=== PATIENT | female | born 1945 | race Caucasian/White ===

== ENCOUNTER 2016-08-15 20:19 | Observation (INO) | payer MEDICARE, OTHER ==
[~2016-08-15] VITALS: Ht 160 cm; Wt 54.4 kg
[~2016-08-15 20:19] MED LIST: ACET325S8 PO; AMIT8CAP6 PO; CYAN1000P SQ; CYCL1PAK PO; DONE10TA14 PO; ESTR1 PO; KETO2AER3 TOP; LIBRAX PO; PREV30CA36 PO; PROG100C PO; ULTR50TA PO; VENL75 PO; WAL-10TA2 PO; [UNRECOGNIZED DRUG - CODE] EX; [UNRECOGNIZED DRUG - CODE] PO; domperidone PO
[2016-08-15 20:28] VITALS: BP 143/60; PULSE 113; RESP 18; TEMP 99.1; O2SAT 97
[2016-08-15 20:45] LABS: AUTOMATED NEUTROPHIL # 4.4 TH/MM3 (1.8-7.7); BASOPHIL % 0.6 % (0.0-2.0); EOSINOPHIL # 0.3 TH/MM3 (0-0.4); EOSINOPHIL % 4.9 % (0.0-4.0); HEMATOCRIT 39.2 % (35.0-46.0); HEMO FLAGS DIFF FINAL; LYMPH % 17.5 % (9.0-44.0); LYMPHOCYTE # 1.1 TH/MM3 (1.0-4.8); MEAN CELL VOLUME 99.3 FL (80.0-100.0); MEAN CORPUSCULAR HEMOGLOBIN 32.5 PG (27.0-34.0); MEAN CORPUSCULAR HGB CONC 32.8 % (32.0-36.0); MONO % 8.5 % (0.0-8.0); NEUT % 68.5 % (16.0-70.0); PLATELET COUNT 397 TH/MM3 (150-450); RED BLOOD COUNT 3.95 MIL/MM3 (4.00-5.30); RED CELL DISTRIBUTION WIDTH 14.8 % (11.6-17.2); WHITE BLOOD COUNT 6.4 TH/MM3 (4.0-11.0)
[2016-08-15] MEDS ORDERED: ASPIRIN 325 MG TAB PO ONE (20:45)
[2016-08-15] MEDS ORDERED: SODIUM CHLORIDE 0.9% FLUSH 5 ML FLUSH IVF PRN (20:45)
[2016-08-15 20:48] VITALS: BP_SYST 126; BP_SYST 143; BP_DIAS 55; BP_DIAS 60
[2016-08-15] MEDS ORDERED: ESTR0.5T3 PO (20:48)
[2016-08-15] MEDS ORDERED: ASPI-110 PO (20:48)
[2016-08-15] MEDS ORDERED: LIBRAX PO (20:48)
[2016-08-15] MEDS ORDERED: DONE10TA7 PO (20:48)
[2016-08-15] MEDS ORDERED: PROG100C PO (20:48)
[2016-08-15] MEDS ORDERED: MOME0.1C23 TOPICAL (20:48)
[2016-08-15] MEDS ORDERED: POLYPOW5 (20:48)
[2016-08-15] MEDS ORDERED: CYCL1TAB29 PO (20:48)
[2016-08-15] MEDS ORDERED: CYAN1000P IM (20:48)
[2016-08-15] MEDS ORDERED: LANS30CA PO (20:48)
[2016-08-15] MEDS ORDERED: VENL75TA PO (20:48)
[2016-08-15] MEDS ORDERED: CLAR10CA3 PO (20:48)
[2016-08-15] MEDS ORDERED: KETO2CRE TOPICAL (20:48)
[2016-08-15] MEDS ORDERED: AMIT24CA5 PO (20:48)
[2016-08-15] MEDS ORDERED: TYLE325T PO (20:48)
[2016-08-15] MEDS ORDERED: TRAM50TA PO (20:48)
[2016-08-15 20:49] VITALS: RESP 18; O2SAT 97
[2016-08-15 21:01] LABS: CHLORIDE 105 MEQ/L (98-107); POTASSIUM 4.3 MEQ/L (3.5-5.1); SODIUM (NA) 143 MEQ/L (136-145)
[2016-08-15 21:03] LABS: ANION GAP 5 MEQ/L (5-15); BICARBONATE 32.7 MEQ/L (21.0-32.0); INTERNATIONAL NORMALIZED RATIO 0.9 RATIO; PROTHROMBIN TIME - PATIENT 9.8 SEC (9.8-11.6)
[2016-08-15 21:04] LABS: BLOOD UREA NITROGEN 9 MG/DL (7-18); MAGNESIUM 2.4 MG/DL (1.5-2.5)
--- NOTE | 2016-08-15 21:04 | RADHPO ---
EXAM DATE/TIME: 08/15/2016 20:40 [facility] COMPARISON: No previous studies available for comparison. INDICATIONS : Chest pain starting today MEDICAL HISTORY : None. SURGICAL HISTORY : None. ENCOUNTER: Initial ACUITY: 1 day PAIN SCORE: 7/10 LOCATION: Center of chest FINDINGS: A single view of the chest demonstrates the lungs to be symmetrically aerated without evidence of mas s, infiltrate or effusion. The cardiomediastinal contours are unremarkable. Osseous structures are intact. Extensive dextroscoliosis. CONCLUSION: No acute disease. Bhavesh Flores MD on August 15, 2016 at 21:02 Board Certified Radiologist. This report was verified electronically.
[2016-08-15 21:07] LABS: GLOMERULAR FILTRATION RATE 56 ML/MIN (>89)
[2016-08-15 21:11] LABS: CREATINE KINASE 98 U/L (26-192)
--- NOTE | 2016-08-15 21:15 | PD ---
HPI Chief Complaint: Chest Pain Time Seen by Provider: 20:29 Travel History International Travel<30 days: No Contact w/Intl Traveler<30days: No Traveled to known affect area: No History of Present Illness HPI 71yo F with fibromyalgia, gastroparesis presents to the ED with c/o midsternal chest pain since 6:30-7pm today. States she was having an argument with son and then prior to the chest pain. Pain is constant, nonradiating. Denies any sob, n/v, abdominal pain, weakness or numbness. States she had no prior similar chest pain and that she normally does not get chest pain after arguments. 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%) GERD: Yes Glaucoma: No Genitourinary: No Headaches: Yes Hepatitis: No Hiatal Hernia: No Hypertension: No Immune Disorder: No Implanted Vascular Access Dvce: No Kidney Stones: No Musculoskeletal: Yes (SCOLIOSIS ) Neurologic: Yes (FIBROMYALGIA) Psychiatric: No Reproductive: No Respiratory: No Immunizations Current: Yes Migraines: No Myocardial Infarction: No Radiation Therapy: No Renal Failure: No Seizures: No Sickle Cell Disease: No Sleep Apnea: No Thyroid Disease: No Ulcer: No Tetanus Vaccination: Unknown Influenza Vaccination: Yes PNEUMOCCOCAL Vaccine (Year): 2 ?: Not Menopausal: Yes Past Surgical History Abdominal Surgery: No AICD: No Appendectomy: No Arteriovenous Shunt: No Cardiac Surgery: No Cholecystectomy: Yes Ear Surgery: No Endocrine Surgery: No Eye Surgery: Yes (LASER) Genitourinary Surgery: No Gynecologic Surgery: No Hysterectomy: No Insulin Pump: No Joint Replacement: No Neurologic Surgery: No Oral Surgery: No Pacemaker: No Thoracic Surgery: No Other Surgery: Yes Social History Alcohol Use: No Tobacco Use: No Substance Use: No Allergies-Medications (Allergen,Severity, Reaction): Coded Allergies: Soma (Verified Adverse Reaction, Severe, CONFUSED, 1/4/17) Keflex (Verified Adverse Reaction, Mild, NAUSEA, 08/15/16) Reported Meds & Prescriptions Reported Meds & Active Scripts Active Reported Aspirin 81 (Aspirin) 81 Mg Tabdr 81 Mg PO DIRECTED Progesterone Micronized 100 Mg Cap 20 Mg PO DAILY Amitiza (Lubiprostone) 24 Mcg Cap 24 Mg PO BID Estrace (Estradiol) 0.5 Mg Tab 0.5 Mg PO DAILY Claritin (Loratadine) 10 Mg Cap 10 Mg PO DAILY Ketoconazole Topical 2% Cream 1 Applic TOPICAL BID Mometasone Topical (Mometasone Furoate) 0.1 % Cream 1 Applic TOPICAL DAILY Cyanocobalamin Inj (Cyanocobalamin) 1,000 Mcg/Ml Inj 1,000 Mcg IM EVERY OTHER DAY Donepezil 10 Mg Tab 10 Mg PO HS Librax (Chlordiazepoxide/Clidinium) 5-2.5 Mg Cap 2 Cap PO BID Effexor (Venlafaxine HCl) 75 Mg Tab 75 Mg PO DAILY Tramadol (Tramadol HCl) 50 Mg Tab 50 Mg PO Q8H PRN Flexeril (Cyclobenzaprine HCl) 10 Mg Tab 10 Mg PO BID Polyethylene Glycol 3350 (Polyethylene Glycol 3350 (Bulk) 1 Pow Pow PRN Lansoprazole 30 Mg Capdr 30 Mg PO BID Tylenol (Acetaminophen) 325 Mg Tab 325 Mg PO Q6H PRN [domperidone] 20 Mg PO TIDAC Review of Systems Except as stated in HPI: all other systems reviewed are Neg Physical Exam Narrative GENERAL: 71yo F in mild distress. SKIN: Warm and dry. HEAD: Atraumatic. Normocephalic. EYES: Pupils equal and round. No scleral icterus. No injection or drainage. ENT: No nasal bleeding or discharge. Mucous membranes pink and moist. NECK: Trachea midline. No JVD. CARDIOVASCULAR: Regular rate and rhythm. No murmur appreciated. RESPIRATORY: No accessory muscle use. Clear to auscultation. Breath sounds equal bilaterally. GASTROINTESTINAL: Abdomen soft, non-tender, nondistended. No rebound tenderness or guarding. MUSCULOSKELETAL: No obvious deformities. No clubbing. No cyanosis. No edema. NEUROLOGICAL: Awake and alert. No obvious cranial nerve deficits. Motor grossly within normal limits. Normal speech. PSYCHIATRIC: Starts crying when telling me history. Visibly upset with what happened at home. Data Data Last Documented VS Vital Signs Date Time Temp Pulse Resp B/P Pulse Ox O2 Delivery O2 Flow Rate FiO2 08/15/16 20:51 95 18 97 Room Air 08/15/16 20:48 143/60 126/55 08/15/16 20:28 99.1 Orders Basic Metabolic Panel (Bmp) (08/15/16 20:36) Ckmb (Isoenzyme) Profile (08/15/16 20:36) Complete Blood Count With Diff (08/15/16 20:36) Magnesium (Mg) (08/15/16 20:36) Prothrombin Time / Inr (Pt) (08/15/16 20:36) Act Partial Throm Time (Ptt) (08/15/16 20:36) Troponin I (08/15/16 20:36) Chest, Single Ap (08/15/16 20:36) Ecg Monitoring (08/15/16 20:36) Bilateral Bp Monitoring (08/15/16 20:36) Iv Access Insert/Monitor (08/15/16 20:36) Oximetry (08/15/16 20:36) Oxygen Administration (08/15/16 20:36) Sodium Chloride 0.9% Flush (Ns Flush) (08/15/16 20:45) Aspirin (Aspirin) (08/15/16 20:45) Electrocardiogram (08/15/16 20:24) Labs Laboratory Tests Test 08/15/16 20:25 White Blood Count 6.4 TH/MM3 Red Blood Count 3.95 MIL/MM3 Hemoglobin 12.9 GM/DL Hematocrit 39.2 % Mean Corpuscular Volume 99.3 FL Mean Corpuscular Hemoglobin 32.5 PG Mean Corpuscular Hemoglobin 32.8 % Concent Red Cell Distribution Width 14.8 % Platelet Count 397 TH/MM3 Mean Platelet Volume 7.8 FL Neutrophils (%) (Auto) 68.5 % Lymphocytes (%) (Auto) 17.5 % Monocytes (%) (Auto) 8.5 % Eosinophils (%) (Auto) 4.9 % Basophils (%) (Auto) 0.6 % Neutrophils # (Auto) 4.4 TH/MM3 Lymphocytes # (Auto) 1.1 TH/MM3 Monocytes # (Auto) 0.5 TH/MM3 Eosinophils # (Auto) 0.3 TH/MM3 Basophils # (Auto) 0.0 TH/MM3 CBC Comment DIFF FINAL Differential Comment Prothrombin Time 9.8 SEC Prothromb Time International 0.9 RATIO Ratio Activated Partial 24.0 SEC Thromboplast Time Sodium Level 143 MEQ/L Potassium Level 4.3 MEQ/L Chloride Level 105 MEQ/L Carbon Dioxide Level 32.7 MEQ/L Anion Gap 5 MEQ/L Blood Urea Nitrogen 9 MG/DL Creatinine 0.99 MG/DL Estimat Glomerular Filtration 56 ML/MIN Rate Random Glucose 96 MG/DL Calcium Level 8.8 MG/DL Magnesium Level 2.4 MG/DL Total Creatine Kinase 98 U/L Troponin I LESS THAN 0.02 NG/ML MDM Medical Decision Making Medical Screen Exam Complete: Yes Emergency Medical Condition: Yes Interpretation(s) EKG: Sinus tachycardia at 103bpm. Normal axis. No ST segment elevation or depression. Differential Diagnosis ACS vs. anxiety vs. stress related cardiomyopathy Narrative Course 71yo F with midsternal chest pain after argument with family today. Pt was initially mildly tachycardic and upset but heart rate decreased once she calmed down and feels better now. Pt denies any sob. Labs reviewed, no leukocytosis. Troponin negative. CXR showed no acute disease. Pt was given aspirin 325mg PO in ED. Pt reevaluated and currently does not have any more chest pain. Will admit pt for chest pain center and serial EKG and cardiac enzyme. Discussed with Dr. Matson and accepted. Diagnosis Primary Impression: Chest pain Qualified Code: R07.9 - Chest pain, unspecified type Admitting Information Admitting Physician Requests: Blanca Riley DO Aug 15, 2016 21:15
[2016-08-15] MEDS ORDERED: SENNOSIDES 8.6 MG TAB PO PRN (21:45)
[2016-08-15] MEDS ORDERED: ENOXAPARIN SODIUM 40 MG/0.4 ML SYRINGE SQ SCH (21:45)
[2016-08-15] MEDS ORDERED: PROCHLORPERAZINE 25 MG SUPP PR PRN (21:45)
[2016-08-15] MEDS ORDERED: MAGNESIUM HYDROXIDE SUSP 30 ML CUP PO PRN (21:45)
[2016-08-15] MEDS ORDERED: TEMAZEPAM 15 MG CAP PO PRN (21:45)
[2016-08-15] MEDS ORDERED: BISACODYL 10 MG SUPP PR PRN (21:45)
[2016-08-15] MEDS ORDERED: MORPHINE SULFATE 4 MG/ML INJ IV PUSH PRN (21:45)
[2016-08-15] MEDS ORDERED: ONDANSETRON HCL 4 MG/2 ML VIAL IVP PRN (21:45)
[2016-08-15] MEDS ORDERED: SODIUM CHLORIDE 0.9% FLUSH 5 ML FLUSH FLUSH PRN (21:45)
[2016-08-15] MEDS ORDERED: ACETAMINOPHEN 325 MG TAB PO PRN (21:45)
[2016-08-15 23:00] VITALS: O2SAT 99
[2016-08-15] MEDS ORDERED: LORazepam 0.5 MG TAB PO PRN (23:00)
[2016-08-15] MEDS: traMADol HCL 50 MG TAB PO PRN (23:10)
[2016-08-16] VITALS (7 sets, daily range): BP systolic 127–156; BP diastolic 54–74; PULSE 78–101; RESP 18–20; TEMP 97.5–97.7; O2SAT 98–100
--- NOTE | 2016-08-16 05:24 | EKG ---
Date Performed: 08/15/2016 Time Performed: 20:24:32 PTAGE: 71 years EKG: Sinus tachycardia. Normal ECG except for rate NO SIGNIFICANT CHANGE FROM PRIOR ELECTROCARDI OGRAM. PREVIOUS TRACING : 10/07/2008 10.10 DOCTOR: jB Fletcher Interpretating Date/Time 08/16/2016 05:23:57
[2016-08-16 06:26] LABS: AUTOMATED NEUTROPHIL # 3.4 TH/MM3 (1.8-7.7); BASOPHIL % 0.8 % (0.0-2.0); EOSINOPHIL # 0.5 TH/MM3 (0-0.4); EOSINOPHIL % 7.9 % (0.0-4.0); HEMATOCRIT 34.1 % (35.0-46.0); HEMO FLAGS DIFF FINAL; LYMPH % 25.2 % (9.0-44.0); LYMPHOCYTE # 1.5 TH/MM3 (1.0-4.8); MEAN CELL VOLUME 97.7 FL (80.0-100.0); MEAN CORPUSCULAR HEMOGLOBIN 32.1 PG (27.0-34.0); MEAN CORPUSCULAR HGB CONC 32.8 % (32.0-36.0); NEUT % 57.1 % (16.0-70.0); PLATELET COUNT 346 TH/MM3 (150-450); RED BLOOD COUNT 3.49 MIL/MM3 (4.00-5.30); RED CELL DISTRIBUTION WIDTH 13.9 % (11.6-17.2); WHITE BLOOD COUNT 5.9 TH/MM3 (4.0-11.0)
[2016-08-16 06:35] LABS: POTASSIUM 3.7 MEQ/L (3.5-5.1)
[2016-08-16 06:38] LABS: BICARBONATE 31.6 MEQ/L (21.0-32.0)
--- NOTE | 2016-08-16 07:57 | EKG ---
Date Performed: 08/16/2016 Time Performed: 02:13:14 PTAGE: 71 years EKG: Sinus rhythm . Normal ECG NO SIGNIFICANT CHANGE FROM PRIOR ELECTROCARDIOGRAM. PREVIOUS TRACING : 08/15/2016 23.34 DOCTOR: Bj Fletcher Interpretating Date/Time 08/16/2016 07:56:38
--- NOTE | 2016-08-16 07:58 | EKG ---
Date Performed: 08/15/2016 Time Performed: 23:34:04 PTAGE: 71 years EKG: Sinus rhythm . Normal ECG NO SIGNIFICANT CHANGE FROM PRIOR ELECTROCARDIOGRAM. PREVIOUS TRACING : 08/15/2016 20.24 DOCTOR: Bj Fletcher Interpretating Date/Time 08/16/2016 07:57:41
[2016-08-16] MEDS: traMADol HCL 50 MG TAB PO PRN (08:04)
--- NOTE | 2016-08-16 08:54 | HHI.HP ---
[facility] Anita Lopez Admission Diagnosis Chest pain Diagnoses: (1) Chest pain Diagnosis: Principal Chief Complaint: Chest pain Travel History International Travel<30 Days: No Contact w/Intl Traveler <30 Da: No Traveled to Known Affected Are: No History of Present Illness 71 year-old male with known history of fibromyalgia, chronic arthritis , gastroparesis, small bowel motility problems, anxiety who presented to hospital because of chest discomfort. Patient states that she's been under a lot of stress lately over the last month. Her symptoms were precipitated by a discussion with her sign yesterday, she states that she was told that she cannot pick her grandson up for a visit. Shortly after that at approximately 4 PM yesterday afternoon she developed a tightness sensation middle part of her chest radiating to her bilateral arms. This lasted for approximately 3 hours prior to coming to the emergency department. Patient was given aspirin in which she was in the hospital her pain slowly dissipated. She is asymptomatic at this time. She denied any nausea, vomiting, diaphoresis, shortness of breath , dyspnea. The patient with minimal risk factors to include age, female, family history. Because of the risk factors is recommended by the ER physician that patient be observed and chest pain center for further evaluation. Review of Systems Constitutional: DENIES: Diaphoretic episodes, Fatigue, Fever, Weight gain, Weight loss, Chills, Dizziness, Change in appetite, Night Sweats Eyes: DENIES: Blurred vision, Diplopia, Eye inflammation, Eye pain, Vision loss , Double Vision Ears, nose, mouth, throat: DENIES: Vertigo, Nasal discharge, Throat pain, Ear Pain, Running Nose, Sinus Pain Respiratory: DENIES: Apneas, Cough, Snoring, Wheezing, Hemoptysis, Sputum production, Shortness of breath Cardiovascular: COMPLAINS OF: Chest pain, DENIES: Palpitations, Syncope, Dyspnea on Exertion, Lower Extremity Edema, Orthopnea Gastrointestinal: DENIES: Abdominal pain, Black stools, Bloody stools, Constipation, Diarrhea, Nausea, Vomiting, Difficulty Swallowing, Anorexia Neurologic: DENIES: Abnormal gait, Headache, Localized weakness, Paresthesias, Seizures, Speech Problems, Tremor, Poor Balance Psychiatric: COMPLAINS OF: Anxiety, DENIES: Confusion, Mood changes, Depression Past Family Social History Past Medical History Fibromyalgia Gastroparesis Chronic fatigue syndrome Arthritis Anxiety Past Surgical History Glaucoma surgery Cholecystectomy Reported Medications Reported Meds & Active Scripts Active Reported Aspirin 81 (Aspirin) 81 Mg Tabdr 81 Mg PO DIRECTED Progesterone Micronized 100 Mg Cap 20 Mg PO DAILY Amitiza (Lubiprostone) 24 Mcg Cap 24 Mg PO BID Estrace (Estradiol) 0.5 Mg Tab 0.5 Mg PO DAILY Claritin (Loratadine) 10 Mg Cap 10 Mg PO DAILY Ketoconazole Topical 2% Cream 1 Applic TOPICAL BID Mometasone Topical (Mometasone Furoate) 0.1 % Cream 1 Applic TOPICAL DAILY Cyanocobalamin Inj (Cyanocobalamin) 1,000 Mcg/Ml Inj 1,000 Mcg IM EVERY OTHER DAY Donepezil 10 Mg Tab 10 Mg PO HS Librax (Chlordiazepoxide/Clidinium) 5-2.5 Mg Cap 2 Cap PO BID Effexor (Venlafaxine HCl) 75 Mg Tab 75 Mg PO DAILY Tramadol (Tramadol HCl) 50 Mg Tab 50 Mg PO Q8H PRN Flexeril (Cyclobenzaprine HCl) 10 Mg Tab 10 Mg PO BID Polyethylene Glycol 3350 (Polyethylene Glycol 3350 (Bulk) 1 Pow Pow PRN Lansoprazole 30 Mg Capdr 30 Mg PO BID Tylenol (Acetaminophen) 325 Mg Tab 325 Mg PO Q6H PRN [domperidone] 20 Mg PO TIDAC Allergies: Coded Allergies: Soma (Verified Adverse Reaction, Severe, CONFUSED, 08/15/16) Keflex (Verified Adverse Reaction, Mild, NAUSEA, 08/15/16) Family History Reviewed is significant for mother having first heart attack at age 63 status post stenting Social History Patient denies any tobacco, alcohol or illicit drugs Physical Exam Vital Signs Vital Signs Date Time Temp Pulse Resp B/P Pulse Ox O2 Delivery O2 Flow Rate FiO2 08/16/16 05:51 97.5 78 20 134/54 100 08/16/16 05:04 86 08/16/16 04:52 78 18 98 08/16/16 04:04 79 18 131/60 98 Room Air 08/16/16 02:07 82 18 127/57 99 Room Air 08/16/16 00:37 88 18 142/55 100 Room Air 08/16/16 00:35 18 08/15/16 23:00 99 21 08/15/16 20:51 95 18 97 Room Air 08/15/16 20:49 18 97 Room Air 08/15/16 20:49 97 Room Air 08/15/16 20:48 143/60 126/55 08/15/16 20:28 99.1 113 18 143/60 97 Physical Exam GENERAL: Well-developed, well-nourished, in no acute distress. alert and orientated HEENT: Head is normocephalic without any lesions or masses noted. Facial features are symmetric. Eyes: Pupils equal round reactive to light. Extraocular muscles are intact. Conjunctivae were clear. Oropharyngeal: Pharynx without any erythema edema. Tongue is midline without deviation. Buccal mucosa is moist without any masses or lesions NECK: Supple without any masses. Trachea midline no deviation. No JVD, no bruits are appreciated CARDIAC: Regular rhythm, regular rate. S1/S2 are heard. 2/6 ejection murmur noted in the aortic region. No gallops or rubs. LUNGS: Clear to auscultation bilaterally. No wheeze, rhonchi or rales. No use of accessory muscles on inspiration or expiration. ABDOMEN: Soft, nontender. Nondistended. Bowel sounds heard in all 4 quadrants. No organomegaly or masses. Negative rebound, negative guarding EXTREMITIES: No edema, pulses are equal bilaterally. No cyanosis or clubbing NEUROLOGY: Mood patient is very anxious and affect appear appropriate. Cranial nerves II through XII grossly intact. Muscle strength 5/5 in upper and lower extremities bilaterally. Deep tendon reflexes are 2+ in upper and lower extremities bilaterally. Laboratory Laboratory Tests Test 08/15/16 08/15/16 08/16/16 08/16/16 20:25 23:15 00:20 06:20 White Blood Count 6.4 5.9 Red Blood Count 3.95 3.49 Hemoglobin 12.9 11.2 Hematocrit 39.2 34.1 Mean Corpuscular Volume 99.3 97.7 Mean Corpuscular Hemoglobin 32.5 32.1 Mean Corpuscular Hemoglobin 32.8 32.8 Concent Red Cell Distribution Width 14.8 13.9 Platelet Count 397 346 Mean Platelet Volume 7.8 7.4 Neutrophils (%) (Auto) 68.5 57.1 Lymphocytes (%) (Auto) 17.5 25.2 Monocytes (%) (Auto) 8.5 9.0 Eosinophils (%) (Auto) 4.9 7.9 Basophils (%) (Auto) 0.6 0.8 Neutrophils # (Auto) 4.4 3.4 Lymphocytes # (Auto) 1.1 1.5 Monocytes # (Auto) 0.5 0.5 Eosinophils # (Auto) 0.3 0.5 Basophils # (Auto) 0.0 0.0 CBC Comment DIFF FINAL DIFF FINAL Differential Comment Prothrombin Time 9.8 Prothromb Time International 0.9 Ratio Activated Partial 24.0 Thromboplast Time Sodium Level 143 144 Potassium Level 4.3 3.7 Chloride Level 105 106 Carbon Dioxide Level 32.7 31.6 Anion Gap 5 6 Blood Urea Nitrogen 9 7 Creatinine 0.99 0.63 Estimat Glomerular Filtration 56 94 Rate Random Glucose 96 83 Calcium Level 8.8 8.7 Magnesium Level 2.4 Total Creatine Kinase 98 Troponin I LESS THAN 0.02 LESS THAN 0.02 LESS THAN 0.02 Result Diagram: 08/16/16 0620 08/16/16 0620 Assessment and Plan Assessment and Plan Chest pain, atypical Likely secondary to anxiety Serial cardiac enzymes were performed and reviewed which were negative Serial EKGs were performed and reviewed which show sinus rhythm without any changes Nuclear stress test was performed which did not indicate any ischemia, low risk factor, secondary to the patient is unable to perform treadmill stress test because of fibromyalgia, aortic murmur Continue aspirin Fibromyalgia, chronic arthritis Continue home medications Anxiety Continue home medications DVT prevention Lovenox Written by Jaren Traylor PA-C, acting as scribe for Dr. Mora on 08/16/16 at 1550. The documentation accurately reflects the work and decisions performed face-to- face by Dr. Mora on 08/16/16 at 1550. Discharge disposition Discharge home in stable condition Activity: Ad woo. Diet: Regular diet Medications per medication reconciliation Follow-up primary medical doctor in one week Problem Qualifiers (1) Chest pain: Qualified Code: R07.9 - Chest pain, unspecified type Jaren Traylor Aug 16, 2016 08:54
[2016-08-16] MEDS ORDERED: LORATADINE 10 MG TAB PO SCH (09:00)
[2016-08-16] MEDS ORDERED: CYCLOBENZAPRINE HCL 10 MG TAB PO SCH (09:00)
[2016-08-16] MEDS ORDERED: ESTRADIOL 1 MG TAB PO SCH (09:00)
[2016-08-16] MEDS ORDERED: SODIUM CHLORIDE 0.9% FLUSH 5 ML FLUSH FLUSH SCH (09:00)
[2016-08-16] MEDS ORDERED: KETOCONAZOLE 2% CREAM 15 GM TOPICAL SCH (09:00)
[2016-08-16] MEDS ORDERED: AMITIZA 24 MCG PO SCH (09:00)
[2016-08-16] MEDS ORDERED: PROGESTERONE MICRONIZED PO SCH (09:00)
[2016-08-16] MEDS ORDERED: chlordiazePOXIDE/CLIDINIUM 5 MG/2.5 MG CAP PO SCH (09:00)
[2016-08-16] MEDS ORDERED: VENLAFAXINE HCL XR 75 MG CAP PO SCH (09:00)
[2016-08-16] MEDS ORDERED: BETAMETHASONE DIPROPIONATE 0.05% CREAM 15 GM TOPICAL SCH (09:00)
[2016-08-16] MEDS ORDERED: ASPIRIN EC 81 MG TABEC PO SCH (09:00)
[2016-08-16] MEDS ORDERED: PANTOPRAZOLE SOD 40 MG DELAYED RELEASE TAB PO SCH (09:00)
[2016-08-16] MEDS ORDERED: REGADENOSON INJ 0.4 MG/5 ML SYR IV ONE (09:53)
--- NOTE | 2016-08-16 11:36 | RADHPO ---
EXAM DATE/TIME: 08/16/2016 10:18 [facility] COMPARISON: No previous studies available for comparison. INDICATIONS : Midsternal chest pain for 2 days. Angina. DOSE: 25.5 mCi Tc99m Myoview at stress. 8.7 mCi Tc99m Myoview at rest. 0.4 mg Lexiscan STRESS SYMPTOMS: Chest pressure. EJECTION FRACTION: > 70% MEDICAL HISTORY : Gastroesophageal reflux disease. Hypercholesterolemia. Gastroparesis. Fibromyalgia. SURGICAL HISTORY : Cholecystectomy. ENCOUNTER: Initial ACUITY: 2 days PAIN SCALE: 7/10 LOCATION: Midsternal chest TECHNIQUE: The patient underwent pharmacologic stress with infusion of prescribed dose. Continuous ECG tracing was monitored during stress. Gated SPECT imaging was performed after stress and conventional SPECT i maging was performed at rest. The examination was performed on a SPECT/CT scanner, both attenuation and non-corrected datasets were reviewed. FINDINGS: DISTRIBUTION: The maximum perfused segment at stress is in the anteroseptal wall. PERFUSION STUDY: The pattern of perfusion at stress is within normal limits. GATED STUDY: There is intact wall motion and thickening without hypokinetic or dyskinetic segments. CONCLUSION: 1. No reversibility to suggest ischemia. 2. Normal wall motion with ejection fraction of greater than 70%. RISK CATEGORY: Low (<1% Annual Mortality Rate) Rayo Skinner MD on August 16, 2016 at 11:32 Board Certified Radiologist. This report was verified electronically.
--- NOTE | 2016-08-16 15:20 | HHI.DCPOC ---
Discharge Care Plan Diagnosis: (1) Chest pain Goals to Promote Your Health * To prevent worsening of your condition and complications * To maintain your health at the optimal level Directions to Meet Your Goals Take your medications as prescribed Follow your dietary instruction Follow activity as directed Keep your appointments as scheduled Take your immunizations and boosters as scheduled If your symptoms worsen call your PCP, if no PCP go to Urgent Care Center or Emergency Room Smoking is Dangerous to Your Health. Avoid second hand smoke Call the 24-hour hour crisis hotline for domestic abuse at Jaren Traylor Aug 16, 2016 15:20
[2016-08-16] MEDS ORDERED: DONEPEZIL HCL 5 MG TAB PO SCH (21:00)
--- NOTE | 2016-08-17 14:37 | TR ---
Date Performed: 08/16/2016 Time Performed: 10:29:18 DOCTOR: Chelle Mario DRUG LIST: CLINICAL HISTORY: REASON FOR TEST: Chest pain. REASON FOR ENDING: OBSERVATION: CONCLUSION: Lexiscan stress test was performed under standard four minute protocol. Radion[place] e was injected one minute prior to ending the test. No electrocardiographic abormalities were present to suggest ischemia. Nuclear imaging and interpretation are pending. COMMENTS:
== END 2016-08-16 15:40 | disposition home or self-care (01) ==
LOC: PHED 20:19 → PHEDA 21:42 → PHEDH 08-16 01:42 → PH3A 08-16 04:48
PROVIDERS: ADMIT Family Medicine; ATTEND Family Medicine
DX: R07.9 Chest pain, unspecified (principal); R01.1 Cardiac murmur, unspecified; M79.7 Fibromyalgia; K31.84 Gastroparesis; R53.82 Chronic fatigue, unspecified; K21.9 Gastro-esophageal reflux disease without esophagitis; K58.9 Irritable bowel syndrome, unspecified; F41.9 Anxiety disorder, unspecified; E78.00 Pure hypercholesterolemia, unspecified; H40.9 Unspecified glaucoma; M19.90 Unspecified osteoarthritis, unspecified site; M41.9 Scoliosis, unspecified
CPT/HCPCS: 71010; 78452; 80048; 82550; 82948; 83735; 84484; 85025; 85610; 85730; 93005; 93017; 97162; 99285; A9502; G0378; G8987; G8988; J1650; J2785

== ENCOUNTER 2017-07-12 20:18 | Emergency (ER) | payer MEDICARE, OTHER ==
[~2017-07-12] VITALS: Ht 160 cm; Wt 61.1 kg
[~2017-07-12 20:18] MED LIST changes: -ACET325S8 PO; +AMIT24CA9 PO; -AMIT8CAP6 PO; +ASPI1TAB57 PO; +CLAR10CA3 PO; +CYAN1000P IM; -CYAN1000P SQ; +CYCL10TA PO; -CYCL1PAK PO; -DONE10TA14 PO; +DONE10TA7 PO; +ESTR0.5T3 PO; -ESTR1 PO; -KETO2AER3 TOP; +KETO2CRE TOPICAL; +LANS30CA PO; +MOME0.1C23 TOPICAL; +POLYPOW5; -PREV30CA36 PO; +TRAM50TA PO; +TYLE325T PO; -ULTR50TA PO; -VENL75 PO; +VENL75TA PO; -WAL-10TA2 PO; -[UNRECOGNIZED DRUG - CODE] EX; -[UNRECOGNIZED DRUG - CODE] PO
[2017-07-12 20:23] VITALS: BP 144/60; PULSE 80; RESP 18; TEMP 98.1; O2SAT 95
[2017-07-12 20:35] VITALS: BP 121/58; PULSE 89; RESP 16; TEMP 98.2; O2SAT 98
--- NOTE | 2017-07-12 22:01 | PD ---
HPI Chief Complaint: Skin Problem Time Seen by Provider: 21:33 Travel History International Travel<30 days: No Contact w/Intl Traveler<30days: No Traveled to known affect area: No History of Present Illness HPI Patient is a 72-year-old female with a history of ulcerative arthritis presents emergency department for evaluation of a bump on her left thumb interphalangeal joint which been present for the past few weeks, she states tender to palpation. Hurts her when she moves her thumb. She relates a history of falling a few weeks ago and having an abrasion on the carpet on that same aspect of her thumb. She denies any fevers denies any wound that needed repair , denies any laceration denied any other injury pattern. States symptoms are mild. No radiation, worsens when she moves her thumb. PFSH Past Medical History Arthritis: Yes (NECK BACK KNEES BONE SPURS) Asthma: No Autoimmune Disease: No Blood Disorders: No Anxiety: Yes Depression: Yes Heart Rhythm Problems: No Cancer: No Cardiovascular Problems: No High Cholesterol: Yes Chemotherapy: No Chest Pain: No Congestive Heart Failure: No COPD: No Cerebrovascular Accident: No Diabetes: No Diminished Hearing: No Endocrine: No Fibromyalgia: Yes (WITH CHRONIC FATIGUE SYNDROME) Gastrointestinal Disorders: Yes (IBS GASTROPOROSIS ACID REFLUX, SMALL BOWEL MOTILITY 30%) GERD: Yes Glaucoma: No Genitourinary: No Headaches: Yes Hepatitis: No Hiatal Hernia: No Hypertension: No Immune Disorder: No Implanted Vascular Access Dvce: No Kidney Stones: No Musculoskeletal: Yes (SCOLIOSIS ) Neurologic: Yes (FIBROMYALGIA) Psychiatric: Yes Reproductive: No Respiratory: No Immunizations Current: Yes Migraines: No Myocardial Infarction: No Radiation Therapy: No Renal Failure: No Seizures: No Sickle Cell Disease: No Sleep Apnea: No Thyroid Disease: No Ulcer: No Tetanus Vaccination: > 5 Years Influenza Vaccination: Yes PNEUMOCCOCAL Vaccine (Year): 2 ?: Not Menopausal: Yes Past Surgical History Abdominal Surgery: No AICD: No Appendectomy: No Arteriovenous Shunt: No Cardiac Surgery: No Cholecystectomy: Yes Ear Surgery: No Endocrine Surgery: No Eye Surgery: Yes (LASER) Genitourinary Surgery: No Gynecologic Surgery: No Hysterectomy: No Insulin Pump: No Joint Replacement: No Neurologic Surgery: No Oral Surgery: No Pacemaker: No Thoracic Surgery: No Other Surgery: Yes Social History Alcohol Use: No Tobacco Use: No Substance Use: No Allergies-Medications (Allergen,Severity, Reaction): Coded Allergies: carisoprodol (Unverified Adverse Reaction, Severe, CONFUSED, 07/12/17) cephalexin (Unverified Adverse Reaction, Mild, NAUSEA, 07/12/17) Reported Meds & Prescriptions Reported Meds & Active Scripts Active Reported Aspirin 81 (Aspirin) 81 Mg Tabdr 81 Mg PO DIRECTED Progesterone Micronized 100 Mg Cap 20 Mg PO DAILY Amitiza (Lubiprostone) 24 Mcg Cap 24 Mg PO BID Estrace (Estradiol) 0.5 Mg Tab 0.5 Mg PO DAILY Claritin (Loratadine) 10 Mg Cap 10 Mg PO DAILY Ketoconazole Topical 2% Cream 1 Applic TOPICAL BID Mometasone Topical (Mometasone Furoate) 0.1 % Cream 1 Applic TOPICAL DAILY Cyanocobalamin Inj (Cyanocobalamin) 1,000 Mcg/Ml Inj 1,000 Mcg IM EVERY OTHER DAY Donepezil 10 Mg Tab 10 Mg PO HS Librax (Chlordiazepoxide/Clidinium) 5-2.5 Mg Cap 2 Cap PO BID Effexor (Venlafaxine HCl) 75 Mg Tab 75 Mg PO DAILY Tramadol (Tramadol HCl) 50 Mg Tab 50 Mg PO Q8H PRN Flexeril (Cyclobenzaprine HCl) 10 Mg Tab 10 Mg PO BID Polyethylene Glycol 3350 (Polyethylene Glycol 3350 (Bulk) 1 Pow Pow PRN Lansoprazole 30 Mg Capdr 30 Mg PO BID Tylenol (Acetaminophen) 325 Mg Tab 325 Mg PO Q6H PRN [domperidone] 20 Mg PO TIDAC Review of Systems Except as stated in HPI: all other systems reviewed are Neg Physical Exam Narrative GENERAL: Well-nourished, well-developed patient. SKIN: Focused skin assessment warm/dry. HEAD: Normocephalic. EYES: No scleral icterus. No injection or drainage. NECK: Supple, trachea midline. No JVD or lymphadenopathy. CARDIOVASCULAR: Regular rate and rhythm without murmurs, gallops, or rubs. RESPIRATORY: Breath sounds equal bilaterally. No accessory muscle use. GASTROINTESTINAL: Abdomen soft, non-tender, nondistended. MUSCULOSKELETAL: No cyanosis, or edema. There is a very tiny bump that she is late 72 radial aspect of her left thumb, fairly firm consistent with a bone spur , her skin is fairly atrophic this may just be the normal anatomy of her thumb. Nontender to palpation. No surrounding erythema. She has full nontender range of motion of all the digits in the left hand, cap refill is brisk. BACK: Nontender without obvious deformity. No CVA tenderness. Data Data Last Documented VS Vital Signs Date Time Temp Pulse Resp B/P (MAP) Pulse Ox O2 Delivery O2 Flow Rate FiO2 07/12/17 20:35 98.2 89 16 121/58 (79) 98 Orders Orders Ed Discharge Order (07/12/17 22:01) MDM Medical Decision Making Medical Screen Exam Complete: Yes Emergency Medical Condition: No Differential Diagnosis Arthritis, osteoarthritis, return arthritis, fracture highly unlikely, inclusion cyst, infection unlikely. Narrative Course Patient roomed emergency department, reassured, there is nothing emergent about the condition on her thumb, recommended symptomatic management follow-up with a orthopedic surgeon or primary care physician. She stable for discharge Diagnosis Primary Impression: Thumb pain Qualified Codes: M79.644 - Pain in right finger(s) Patient Instructions: General Instructions, RICE Therapy (ED) Disposition: 01 DISCHARGE HOME Condition: Stable Juvencio Gipson MD Jul 12, 2017 22:01
== END 2017-07-12 22:08 | disposition home or self-care (01) ==
LOC: PHEFT 20:18
DX: M79.645 Pain in left finger(s) (principal); R22.32 Localized swelling, mass and lump, left upper limb; E78.00 Pure hypercholesterolemia, unspecified; Z87.39 Personal history of other diseases of the musculoskeletal system and connective tissue; Z86.59 Personal history of other mental and behavioral disorders; Z87.19 Personal history of other diseases of the digestive system; Z86.69 Personal history of other diseases of the nervous system and sense organs
CPT/HCPCS: 99281

== ENCOUNTER 2017-08-05 13:40 | Emergency (ER) | payer MEDICARE, OTHER ==
[~2017-08-05] VITALS: Ht 160 cm; Wt 63.0 kg
[2017-08-05 13:45] VITALS: BP 132/64; PULSE 93; RESP 16; TEMP 98.5; O2SAT 99
--- NOTE | 2017-08-05 14:23 | PD ---
HPI Chief Complaint: Fall Time Seen by Provider: 14:19 Travel History International Travel<30 days: No Contact w/Intl Traveler<30days: No Traveled to known affect area: No History of Present Illness HPI 72-year-old female patient with history of multiple medical issues, presents to the ER today because she tripped and fell on a wire, and fell onto her left hip area, complaining of left hip pain and knee pain. She denies any head injury or loss of consciousness. She was apparently able to walk after the injury. Modifying Factors: None Associated Signs & Symptoms: Trip and fall, left hip and knee injury Risk Factors: None PFSH Past Medical History Arthritis: Yes (NECK BACK KNEES BONE SPURS) Asthma: No Autoimmune Disease: No Blood Disorders: No Anxiety: Yes Depression: Yes Heart Rhythm Problems: No Cancer: No Cardiovascular Problems: No High Cholesterol: Yes Chemotherapy: No Chest Pain: No Congestive Heart Failure: No COPD: No Cerebrovascular Accident: No Diabetes: No Diminished Hearing: No Endocrine: No Fibromyalgia: Yes (WITH CHRONIC FATIGUE SYNDROME) Gastrointestinal Disorders: Yes (IBS GASTROPOROSIS ACID REFLUX, SMALL BOWEL MOTILITY 30%) GERD: Yes Glaucoma: No Genitourinary: No Headaches: Yes Hepatitis: No Hiatal Hernia: No Hypertension: No Immune Disorder: No Implanted Vascular Access Dvce: No Kidney Stones: No Musculoskeletal: Yes (SCOLIOSIS ) Neurologic: Yes (FIBROMYALGIA) Psychiatric: Yes Reproductive: No Respiratory: No Immunizations Current: Yes Migraines: No Myocardial Infarction: No Radiation Therapy: No Renal Failure: No Seizures: No Sickle Cell Disease: No Sleep Apnea: No Thyroid Disease: No Ulcer: No Influenza Vaccination: Yes PNEUMOCCOCAL Vaccine (Year): 2 ?: Not Menopausal: Yes Past Surgical History Abdominal Surgery: No AICD: No Appendectomy: No Arteriovenous Shunt: No Cardiac Surgery: No Cholecystectomy: Yes Ear Surgery: No Endocrine Surgery: No Eye Surgery: Yes (LASER) Genitourinary Surgery: No Gynecologic Surgery: No Hysterectomy: No Insulin Pump: No Joint Replacement: No Neurologic Surgery: No Oral Surgery: No Pacemaker: No Thoracic Surgery: No Other Surgery: Yes (sung, cataracts) Social History Alcohol Use: No Tobacco Use: No Substance Use: No Allergies-Medications (Allergen,Severity, Reaction): Coded Allergies: carisoprodol (Unverified Adverse Reaction, Severe, CONFUSED, 08/05/17) cephalexin (Unverified Adverse Reaction, Mild, NAUSEA, 08/05/17) Reported Meds & Prescriptions Reported Meds & Active Scripts Active Reported Aspirin 81 (Aspirin) 81 Mg Tabdr 81 Mg PO DIRECTED Progesterone Micronized 100 Mg Cap 20 Mg PO DAILY Amitiza (Lubiprostone) 24 Mcg Cap 24 Mg PO BID Estrace (Estradiol) 0.5 Mg Tab 0.5 Mg PO DAILY Claritin (Loratadine) 10 Mg Cap 10 Mg PO DAILY Ketoconazole Topical 2% Cream 1 Applic TOPICAL BID Mometasone Topical (Mometasone Furoate) 0.1 % Cream 1 Applic TOPICAL DAILY Cyanocobalamin Inj (Cyanocobalamin) 1,000 Mcg/Ml Inj 1,000 Mcg IM EVERY OTHER DAY Donepezil 10 Mg Tab 10 Mg PO HS Librax (Chlordiazepoxide/Clidinium) 5-2.5 Mg Cap 2 Cap PO BID Effexor (Venlafaxine HCl) 75 Mg Tab 75 Mg PO DAILY Tramadol (Tramadol HCl) 50 Mg Tab 50 Mg PO Q8H PRN Flexeril (Cyclobenzaprine HCl) 10 Mg Tab 10 Mg PO BID Polyethylene Glycol 3350 (Polyethylene Glycol 3350 (Bulk) 1 Pow Pow PRN Lansoprazole 30 Mg Capdr 30 Mg PO BID [domperidone] 20 Mg PO TIDAC Review of Systems Except as stated in HPI: all other systems reviewed are Neg Physical Exam Narrative GENERAL: Well-developed elderly white female patient currently in moderate distress. Awake and oriented 3. SKIN: Focused skin assessment warm/dry. HEAD: Atraumatic. Normocephalic. EYES: Pupils equal and round. No scleral icterus. No injection or drainage. ENT: No nasal bleeding or discharge. Mucous membranes pink and moist. NECK: Trachea midline. No JVD. CARDIOVASCULAR: Regular rate and rhythm. No murmur appreciated. RESPIRATORY: No accessory muscle use. Clear to auscultation. Breath sounds equal bilaterally. GASTROINTESTINAL: Abdomen soft, non-tender, nondistended. Hepatic and splenic margins not palpable. Pelvis: Stable and mildly tender palpation of the left hip area. Nontender range of motion at the hip. EXTREMITIES: No clubbing, cyanosis, or edema. No joint tenderness, effusion, or edema noted. There is an abrasion over the left knee but it is nontender to palpation without deformities. MUSCULOSKELETAL: No obvious deformities. No clubbing. No cyanosis. No edema. NEUROLOGICAL: Awake and alert. No obvious cranial nerve deficits. Motor grossly within normal limits. Normal speech. PSYCHIATRIC: Appropriate mood and affect; insight and judgment normal. Data Data Last Documented VS Vital Signs Date Time Temp Pulse Resp B/P (MAP) Pulse Ox O2 Delivery O2 Flow Rate FiO2 08/05/17 13:45 98.5 93 16 132/64 (86) 99 Orders Orders Femur (Ap & Lat/2vws) (08/05/17 14:19) Hip, Uni(Ap&Lat) W Ap Pelvis (08/05/17 14:19) Tibia/Fibula (Ap/Lat) (08/05/17 14:19) Ed Discharge Order (08/05/17 15:17) [facility] Medical Decision Making Medical Screen Exam Complete: Yes Emergency Medical Condition: Yes Medical Record Reviewed: Yes Interpretation(s) Last 24 hours Impressions Hip and Pelvis X-Ray 08/05/17 1419 Signed Impressions: Service Date/Time: Saturday, August 05, 2017 14:28 - CONCLUSION: Minimal bilateral hip osteoarthritic findings. No evidence of fracture. Pablo Cardozo MD Femur X-Ray 08/05/17 1419 Signed Impressions: Service Date/Time: Saturday, August 05, 2017 14:28 - CONCLUSION: No evidence of fracture. Pablo Cardozo MD Differential Diagnosis Trip and fall, hip injury: Fractures versus contusions Narrative Course X-rays did not show any signs of acute fractures. At this point, my plan would be to release her with follow-up to primary care physician. Return for any worsening in pain or new symptoms as needed. The plan has been discussed with her and she states understanding. Diagnosis Primary Impression: Slipping, tripping and stumbling without falling, unspecified, initial encounter Additional Impressions: Contusion of left knee Contusion of left hip Disposition: 01 DISCHARGE HOME Condition: Stable Maria Fernanda Zavala MD Aug 05, 2017 14:23
--- NOTE | 2017-08-05 15:07 | RADRPT ---
EXAM DATE/TIME: 08/05/2017 14:28 [facility] COMPARISON: No previous studies available for comparison. INDICATIONS : Left femur pain post fall. MEDICAL HISTORY : None. SURGICAL HISTORY : None. ENCOUNTER: Initial ACUITY: 1 day PAIN SCORE: 7/10 LOCATION: Left femur. FINDINGS: 4 views left femur. Bone alignment within normal limits. No evidence of left femur fracture. Minimal left osteophytes. CONCLUSION: No evidence of fracture. Pablo Cardozo MD on August 05, 2017 at 15:04 Board Certified Radiologist. This report was verified electronically.
--- NOTE | 2017-08-05 15:11 | RADRPT ---
EXAM DATE/TIME: 08/05/2017 14:28 [facility] COMPARISON: FEMUR LEFT (AP & LAT/2VWS), August 05, 2017, 14:28. INDICATIONS : Left hip pain post fall. MEDICAL HISTORY : None. SURGICAL HISTORY : None. ENCOUNTER: Initial ACUITY: 1 day PAIN SCORE: 8/10 LOCATION: Left hip. FINDINGS: 3 views of the left hip and pelvis. Small bilateral osteophytes. No evidence of fracture. Alignment w ithin normal limits. CONCLUSION: Minimal bilateral hip osteoarthritic findings. No evidence of fracture. Pablo Cardozo MD on August 05, 2017 at 15:06 Board Certified Radiologist. This report was verified electronically.
--- NOTE | 2017-08-05 15:12 | RADRPT ---
EXAM DATE/TIME: 08/05/2017 14:28 [facility] COMPARISON: FEMUR LEFT (AP & LAT/2VWS), August 05, 2017, 14:28. INDICATIONS : Left lower leg pain post fall. MEDICAL HISTORY : None. SURGICAL HISTORY : None. ENCOUNTER: Initial ACUITY: 1 day PAIN SCORE: 5/10 LOCATION: Left tibia/fibula. FINDINGS: 2 views left tibia and fibula. Bone alignment within normal limits. No evidence of fracture. CONCLUSION: No evidence of fracture. Pablo Cardozo MD on August 05, 2017 at 15:09 Board Certified Radiologist. This report was verified electronically.
== END 2017-08-05 15:33 | disposition home or self-care (01) ==
LOC: PHED 13:40
DX: S70.02XA Contusion of left hip, initial encounter (principal); S80.02XA Contusion of left knee, initial encounter; W01.0XXA Fall on same level from slipping, tripping and stumbling without subsequent striking against object, initial encounter; E78.00 Pure hypercholesterolemia, unspecified; F41.9 Anxiety disorder, unspecified; F32.9 Major depressive disorder, single episode, unspecified; K21.9 Gastro-esophageal reflux disease without esophagitis; K58.9 Irritable bowel syndrome, unspecified; M41.9 Scoliosis, unspecified
CPT/HCPCS: 73502; 73552; 73590; 99284